=== PATIENT | male | born 1940 | race Caucasian/White ===

== ENCOUNTER 2018-02-03 16:02 | Emergency (ER) | payer MEDICARE ==
[2018-02-03 16:47] LABS: #Basophils 0.1 thou/uL (0.0-0.2); #Lymphocytes 0.7 thou/uL (1.20-3.40); #Monocytes 0.4 thou/uL (0.11-0.59); #Neutrophils 8.7 thou/uL (1.40-6.50); %Basophils 0.5 % (0.0-1.0); %Eosinophils 0.1 % (0.0-10.0); %Lymphocytes 7.4 % (21.0-51.0); %Monocytes 4.3 % (0.0-10.0); %Neutrophils 87.7 % (42.0-75.0); Mean Corpuscular HGB CONC 35.2 g/dL (32.0-36.0); Mean Corpuscular Hemoglobin 33.7 pg (27.0-31.0); Mean Corpuscular Volume 95.8 fl (80.0-94.0); Mean Platelet Volume 8.2 fL (7.4-10.4); Platelet Count 195 thou/uL (130-400); RBC Distribution Width 11.7 % (11.5-14.5); Red Blood Cell (RBC) Count 5.32 mill/uL (4.70-6.10)
--- NOTE | 2018-02-03 16:49 | RAD ---
CHEST ONE VIEW: 02/03/18 HISTORY: Fever and weakness. COMPARISON: 09/26/09. FINDINGS: The cardiac silhouette is magnified by projection. Pulmonary vasculature is slightly engorged. Medias tinum midline. No lobar consolidation or evidence of pneumothorax. IMPRESSION: Mild pulmonary vascular congestion. POS: [facility]
[2018-02-03 16:58] LABS: ALT (SGPT) 28 U/L (8-55); AST (SGOT) 16 U/L (5-34); Albumin 3.8 g/dL (3.4-4.8); Alkaline Phosphatase 85 U/L (40-150); Anion Gap 12 mmol/L (10-20); BUN (Urea Nitrogen) 13 mg/dL (8.4-25.7); Bilirubin, Total 1.4 mg/dL (0.2-1.2); Calc. Creatinine Clearance 0 mL/min (70-130); Calcium 9.6 mg/dL (7.8-10.44); Carbon Dioxide 21 mmol/L (23-31); Chloride 105 mmol/L (98-107); Estimated GFR-MDRD Greater than 90; Glucose 167 mg/dL (83-110); Potassium 4.3 mmol/L (3.5-5.1); Protein, Total 6.8 g/dL (5.8-8.1); Sodium 134 mmol/L (136-145)
[2018-02-03 17:02] LABS: CKMB 0.6 ng/mL (0-6.6); Troponin I Less than 0.010 ng/mL (< 0.028)
== END 2018-02-03 17:48 | disposition home or self-care (01) ==
LOC: SCSER 16:02
DX: T67.5XXA Heat exhaustion, unspecified, initial encounter (principal); E86.0 Dehydration
CPT/HCPCS: 71045; 80053; 82553; 83880; 84484; 85025; 87804; 93005

== ENCOUNTER 2021-01-18 11:35 | Emergency (ER) | payer MEDICARE ==
[2021-01-18] MEDS ORDERED: hydrOXYzine 25 MG TAB ONE (14:13)
[2021-01-18] MEDS ORDERED: Dexamethasone 4 mg/ml Vial ONE (14:13)
== END 2021-01-18 14:54 | disposition home or self-care (01) ==
LOC: ERS 11:36
DX: L23.7 Allergic contact dermatitis due to plants, except food (principal)
CPT/HCPCS: 96372; 99282; J1100

== ENCOUNTER 2021-05-26 10:26 | Emergency (ER) | payer MEDICARE ==
[~2021-05-26 10:26] MED LIST: Iopamidol-370 76% 500 ML 1 ML ONE
[2021-05-26 12:13] LABS: #Eosinphils 0.3 thou/uL (0.0-0.7); #Lymphocytes 2.6 thou/uL (1.20-3.40); #Monocytes 0.5 thou/uL (0.11-0.59); #Neutrophils 4.6 thou/uL (1.40-6.50); %Basophils 0.1 % (0.0-1.0); %Eosinophils 3.9 % (0.0-10.0); %Lymphocytes 32.8 % (21.0-51.0); %Monocytes 6.5 % (0.0-10.0); %Neutrophils 56.6 % (42.0-75.0); Hemoglobin 17.8 g/dL (14.0-18.0); Mean Corpuscular HGB CONC 33.3 g/dL (32.0-36.0); Mean Corpuscular Hemoglobin 34.2 pg (27.0-31.0); Mean Platelet Volume 7.4 fL (7.4-10.4); Platelet Count 274 thou/uL (130-400); RBC Distribution Width 11.6 % (11.5-14.5)
[2021-05-26 12:23] LABS: ALT (SGPT) 65 U/L (8-55); AST (SGOT) 30 U/L (5-34); Alkaline Phosphatase 93 U/L (40-110); Anion Gap 14 mmol/L (10-20); BUN (Urea Nitrogen) 15 mg/dL (8.4-25.7); Bilirubin, Total 0.6 mg/dL (0.2-1.2); Calc. Creatinine Clearance 0 mL/min (70-130); Calcium 9.9 mg/dL (7.8-10.44); Carbon Dioxide 24 mmol/L (23-31); Chloride 107 mmol/L (98-107); Globulin 3.2 g/dL (2.4-3.5); Glucose 103 mg/dL (83-110); Lipase 16 U/L (8-78); Potassium 4.5 mmol/L (3.5-5.1); Protein, Total 7.2 g/dL (5.8-8.1); Sodium 140 mmol/L (136-145)
== END 2021-05-26 13:38 | disposition home or self-care (01) ==
LOC: ERS 10:26
DX: N28.89 Other specified disorders of kidney and ureter (principal); M54.2 Cervicalgia; R19.5 Other fecal abnormalities
CPT/HCPCS: 36415; 74177; 80053; 83690; 84484; 85025; 93005; Q9967

== ENCOUNTER 2022-02-08 14:04 | Emergency (ER) | payer MEDICARE ==
[~2022-02-08 14:04] MED LIST changes: +ISOVUE-370 76%-LOCM 1 ML ONE; -Iopamidol-370 76% 500 ML 1 ML ONE
[2022-02-08 14:37] LABS: #Eosinphils 0.1 thou/uL (0.0-0.7); #Lymphocytes 2.6 thou/uL (1.20-3.40); #Neutrophils 12.7 thou/uL (1.40-6.50); %Basophils 0.2 % (0.0-1.0); %Eosinophils 0.4 % (0.0-10.0); %Lymphocytes 15.8 % (21.0-51.0); %Monocytes 6.4 % (0.0-10.0); %Neutrophils 77.2 % (42.0-75.0); Hemoglobin 18.3 g/dL (14.0-18.0); Mean Corpuscular Hemoglobin 34.7 pg (27.0-31.0); Platelet Count 312 thou/uL (130-400); RBC Distribution Width 12.2 % (11.5-14.5); Red Blood Cell (RBC) Count 5.27 mill/uL (4.70-6.10); White Blood Cell (WBC) Count 16.4 thou/uL (4.8-10.8)
[2022-02-08 14:48] LABS: Prothrombin Time 13.3 sec (12.0-14.7)
[2022-02-08 14:49] LABS: PTT 30.6 sec (22.9-36.1)
[2022-02-08 14:53] LABS: ALT (SGPT) 33 U/L (8-55); AST (SGOT) 17 U/L (5-34); Albumin 3.9 g/dL (3.4-4.8); Alkaline Phosphatase 95 U/L (40-110); Anion Gap 14 mmol/L (10-20); BUN (Urea Nitrogen) 16 mg/dL (8.4-25.7); Bilirubin, Total 1.4 mg/dL (0.2-1.2); Calc. Creatinine Clearance 0 mL/min (70-130); Calcium 9.4 mg/dL (7.8-10.44); Carbon Dioxide 24 mmol/L (23-31); Chloride 104 mmol/L (98-107); Globulin 2.8 g/dL (2.4-3.5); Glucose 133 mg/dL (83-110); Lipase 11 U/L (8-78); Potassium 4.4 mmol/L (3.5-5.1); Protein, Total 6.7 g/dL (5.8-8.1); Sodium 138 mmol/L (136-145)
[2022-02-08] MEDS ORDERED: Ondansetron PF 4 MG/2 ML Vial ONE (15:26)
[2022-02-08] MEDS ORDERED: Pantoprazole 40 MG VIAL ONE (15:26)
[2022-02-08 18:03] LABS: Bacteria/HPF None Seen HPF (None Seen); Bilirubin Negative (Negative); Blood, Urine Trace (Negative); Clarity Clear (Clear); Glucose, Urine (Dipstick) Normal (Negative); Ketone, Urine 10 mg/dL (Negative); Leukocyte Negative Leu/uL (Negative); Nitrite Negative (Negative); Protein, Urine (Dipstick) Negative (Neg-Trace); Squamous Epithelial None Seen HPF (0-3); Urobilinogen Normal mg/dL (Less than 2); WBC/HPF 0-3 HPF (0-3)
[2022-02-08 18:05] LABS: Specific Gravity, Urine 1.046 (1.002-1.036)
== END 2022-02-08 17:42 | disposition home or self-care (01) ==
LOC: ERS 14:04
DX: N28.89 Other specified disorders of kidney and ureter (principal); R11.2 Nausea with vomiting, unspecified
CPT/HCPCS: 36415; 71045; 74177; 80053; 81003; 81015; 82274; 83605; 83690; 84484; 85025; 85610; 85730; 86850; 86900; 86901; 87040; 93005; 96361; 96374; 96375; C9113; J2405; Q9966

== ENCOUNTER 2023-04-02 14:32 | Inpatient (IN) | payer MEDICARE ==
[~2023-04-02 14:32] MED LIST changes: -ISOVUE-370 76%-LOCM 1 ML ONE; +Iopamidol-370 76% 500 ML MDV (1 ML CHARGE) ONE
[2023-04-02 15:06] LABS: #Basophils 0.1 thou/uL (0.0-0.2); #Eosinphils 0.2 thou/uL (0.0-0.7); #Monocytes 0.6 thou/uL (0.11-0.59); #Neutrophils 12.2 thou/uL (1.40-6.50); %Basophils 0.3 % (0.0-1.0); %Eosinophils 1.5 % (0.0-10.0); %Lymphocytes 16.1 % (21.0-51.0); %Monocytes 4.1 % (0.0-10.0); %Neutrophils 77.4 % (42.0-75.0); Hemoglobin 18.8 g/dL (14.0-18.0); Mean Corpuscular HGB CONC 34.2 g/dL (32.0-36.0); Mean Corpuscular Hemoglobin 33.9 pg (27.0-31.0); Mean Corpuscular Volume 99.1 fl (78.0-98.0); Mean Platelet Volume 9.6 fL (7.4-10.4); Platelet Count 291 10x3/uL (130-400); RBC Distribution Width 13.1 % (11.5-14.5); Red Blood Cell (RBC) Count 5.55 mill/uL (4.70-6.10); White Blood Cell (WBC) Count 15.8 10x3/uL (4.8-10.8)
[2023-04-02 15:32] LABS: ALT (SGPT) 212 U/L (8-55); AST (SGOT) 132 U/L (5-34); Albumin 3.8 g/dL (3.4-4.8); Alkaline Phosphatase 145 U/L (40-110); Anion Gap 14 mmol/L (10-20); BUN (Urea Nitrogen) 19 mg/dL (8.4-25.7); Bilirubin, Total 3.5 mg/dL (0.2-1.2); Calc. Creatinine Clearance 0 mL/min (70-130); Calcium 10.6 mg/dL (7.8-10.44); Carbon Dioxide 23 mmol/L (23-31); Chloride 104 mmol/L (98-107); Estimated GFR 77; Globulin 3.5 g/dL (2.4-3.5); Glucose 141 mg/dL (83-110); Potassium 4.1 mmol/L (3.5-5.1); Protein, Total 7.3 g/dL (5.8-8.1); Sodium 137 mmol/L (136-145); Troponin I Less than 0.010 ng/mL (< 0.028)
[2023-04-02] MEDS ORDERED: Dexamethasone 4 mg/ml Vial ONE (16:43)
[2023-04-02] MEDS ORDERED: Morphine 4 MG/ML VIAL ONE (16:43)
[2023-04-02 16:47] LABS: Bacteria/HPF None Seen HPF (None Seen); Bilirubin Negative (Negative); Blood, Urine Negative (Negative); CAUTI Indications for Culture Pelvic or flank pain; Clarity Clear (Clear); Glucose, Urine (Dipstick) Normal (Negative); Ketone, Urine Negative (Negative); Leukocyte Negative Leu/uL (Negative); Nitrite Negative (Negative); Protein, Urine (Dipstick) Negative (Neg-Trace); RBC/HPF 0-3 HPF (0-3); Specific Gravity, Urine 1.025 (1.002-1.036); Squamous Epithelial None Seen HPF (0-3); Urobilinogen 3 mg/dL (Less than 2); WBC/HPF 0-3 HPF (0-3); pH, Urine 6.5 (5.0-9.0)
[2023-04-02] MEDS ORDERED: Ondansetron ODT 4 MG TAB ONE (16:50)
[2023-04-02 16:54] LABS: Urine Culture Reflex No No
[2023-04-02] MEDS ORDERED: dilTIAZem 125 MG/25 ML SDV ONE (17:28)
[2023-04-02] MEDS ORDERED: Senokot S 8.6-50 MG TAB PO PRN (19:10)
[2023-04-02] MEDS ORDERED: Ondansetron ODT 4 MG TAB PO PRN (19:10)
[2023-04-02] MEDS ORDERED: Bisacodyl 10 MG SUPP PR PRN (19:10)
[2023-04-02] MEDS ORDERED: Acetaminophen 325 MG TAB PO PRN (19:10)
[2023-04-02] MEDS ORDERED: Bisacodyl 5 MG TAB PO PRN (19:10)
[2023-04-02] MEDS ORDERED: dilTIAZem 125 MG in Sodium Chloride 0.9% 100 ML IVPB SCH (19:15)
[2023-04-02] MEDS ORDERED: Communication Order-Pharmacy FS ONE (19:17)
[2023-04-02 19:51] LABS: Troponin I Less than 0.010 ng/mL (< 0.028)
[2023-04-02] MEDS ORDERED: Magnesium 2 GM/50 ML(in water) 2 GM in Premix Bag 1 BAG IVPB SCH (20:00)
[2023-04-02 20:25] LABS: Thyroid Stimulating Hormone 1.8649 uIU/mL (0.35-4.94)
[2023-04-02] MEDS ORDERED: Piperacillin/Tazobactam 3.375 GM in Sodium Chloride 0.9% 100 ML IVPB SCH (21:00)
[2023-04-02] MEDS: Sodium Chloride 0.9% 1,000 ML IV SCH (22:02)
[2023-04-02] MEDS: Metoprolol Tartrate 25 MG TAB PO SCH (22:02)
[2023-04-02 22:25] VITALS: BMI 28.5
[2023-04-02 22:29] LABS: Troponin I Less than 0.010 ng/mL (< 0.028)
[2023-04-03 02:54] LABS: HBCM Index 0.08 S/CO (0-0.79); HBSAg Index 0.23 S/CO (0-0.99); Hep A IgM AB Non-Reactive S/CO (NonReactive); Hep A IgM S/CO 0.32 S/CO (0-0.79); Hep B Surf Ag Non-Reactive S/CO (NonReactive); Hep C IgG Ab Non-Reactive S/CO (NonReactive); Hep C Index 0.08 S/CO (0-0.79); Hepatitis B Core IgM Abs Non-Reactive S/CO (NonReactive)
[2023-04-03] MEDS: Piperacillin/Tazobactam 3.375 GM in Sodium Chloride 0.9% 100 ML IVPB SCH ×3 (03:27→18:13)
[2023-04-03 04:03] LABS: #Monocytes 0.3 thou/uL (0.11-0.59); #Neutrophils 10.1 thou/uL (1.40-6.50); %Basophils 0.2 % (0.0-1.0); %Lymphocytes 10.1 % (21.0-51.0); %Monocytes 2.4 % (0.0-10.0); %Neutrophils 86.6 % (42.0-75.0); Hematocrit 49.5 % (42.0-52.0); Hemoglobin 16.8 g/dL (14.0-18.0); Mean Corpuscular HGB CONC 33.9 g/dL (32.0-36.0); Mean Corpuscular Hemoglobin 34.5 pg (27.0-31.0); Mean Corpuscular Volume 101.6 fl (78.0-98.0); Mean Platelet Volume 9.4 fL (7.4-10.4); Platelet Count 264 10x3/uL (130-400); RBC Distribution Width 13.3 % (11.5-14.5); Red Blood Cell (RBC) Count 4.87 mill/uL (4.70-6.10); White Blood Cell (WBC) Count 11.7 10x3/uL (4.8-10.8)
[2023-04-03 04:28] LABS: ALT (SGPT) 195 U/L (8-55); AST (SGOT) 89 U/L (5-34); Albumin 3.4 g/dL (3.4-4.8); Alkaline Phosphatase 126 U/L (40-110); Anion Gap 11 mmol/L (10-20); BUN (Urea Nitrogen) 17 mg/dL (8.4-25.7); Bilirubin, Direct 2.7 mg/dL (0.1-0.3); Bilirubin, Total 3.6 mg/dL (0.2-1.2); Calc. Creatinine Clearance 93 mL/min (70-130); Calcium 9.6 mg/dL (7.8-10.44); Carbon Dioxide 20 mmol/L (23-31); Chloride 106 mmol/L (98-107); Estimated GFR 88; Glucose 181 mg/dL (83-110); Potassium 4.2 mmol/L (3.5-5.1); Protein, Total 6.5 g/dL (5.8-8.1); Sodium 133 mmol/L (136-145)
[2023-04-03] MEDS: Sodium Chloride 0.9% 1,000 ML IV SCH (05:10)
[2023-04-03] MEDS: Metoprolol Tartrate 25 MG TAB PO SCH ×2 (09:56→21:03)
[2023-04-03 12:09] VITALS: BP 135/90
[2023-04-03] MEDS ORDERED: Melatonin 3 MG TAB PO PRN (20:12)
[2023-04-04 02:41] LABS: #Eosinphils 0.1 thou/uL (0.0-0.7); #Monocytes 0.8 thou/uL (0.11-0.59); #Neutrophils 10.7 thou/uL (1.40-6.50); %Basophils 0.1 % (0.0-1.0); %Eosinophils 0.4 % (0.0-10.0); %Lymphocytes 14.9 % (21.0-51.0); %Monocytes 6.1 % (0.0-10.0); %Neutrophils 77.8 % (42.0-75.0); Hematocrit 47.2 % (42.0-52.0); Hemoglobin 16.2 g/dL (14.0-18.0); Mean Corpuscular HGB CONC 34.3 g/dL (32.0-36.0); Mean Corpuscular Hemoglobin 34.8 pg (27.0-31.0); Mean Corpuscular Volume 101.5 fl (78.0-98.0); Mean Platelet Volume 9.8 fL (7.4-10.4); Platelet Count 247 10x3/uL (130-400); RBC Distribution Width 13.7 % (11.5-14.5); Red Blood Cell (RBC) Count 4.65 mill/uL (4.70-6.10); White Blood Cell (WBC) Count 13.8 10x3/uL (4.8-10.8)
[2023-04-04] MEDS: Piperacillin/Tazobactam 3.375 GM in Sodium Chloride 0.9% 100 ML IVPB SCH ×2 (02:41→11:33)
[2023-04-04 03:43] LABS: AST (SGOT) 38 U/L (5-34); Albumin 3.3 g/dL (3.4-4.8); Alkaline Phosphatase 108 U/L (40-110); Anion Gap 12 mmol/L (10-20); BUN (Urea Nitrogen) 18 mg/dL (8.4-25.7); Bilirubin, Direct 0.9 mg/dL (0.1-0.3); Bilirubin, Total 1.5 mg/dL (0.2-1.2); Calc. Creatinine Clearance 97 mL/min (70-130); Calcium 9.7 mg/dL (7.8-10.44); Carbon Dioxide 20 mmol/L (23-31); Chloride 109 mmol/L (98-107); Estimated GFR 89; Glucose 113 mg/dL (83-110); Protein, Total 6.5 g/dL (5.8-8.1); Sodium 137 mmol/L (136-145)
[2023-04-04 03:44] VITALS: TEMP 97
[2023-04-04 03:44] LABS: ALT (SGPT) 140 U/L (8-55)
[2023-04-04] MEDS ORDERED: fentaNYL PF 100 MCG/2 ML SYRINGE ONE (07:32)
[2023-04-04] MEDS ORDERED: Indomethacin 50 MG SUPP ONE (07:40)
[2023-04-04] MEDS ORDERED: Iopamidol 30 ML ONE (07:41)
[2023-04-04] MEDS ORDERED: Ondansetron HCl/PF 4 MG/2 ML Vial IVP PRN (07:42)
[2023-04-04] MEDS ORDERED: Promethazine HCl 25 MG/ML VIAL IM PRN (07:42)
[2023-04-04] MEDS ORDERED: SUGAMMADEX SODIUM 200 MG/2 ML VIAL ONE (08:00)
[2023-04-04] MEDS ORDERED: PHENYLEPHRINE-NS 100 MCG/ML 10 ML SYRINGE ONE (08:10)
[2023-04-04] MEDS ORDERED: PROPOFOL 200 MG/20 ML VIAL ONE (08:10)
[2023-04-04] MEDS ORDERED: Dexamethasone 20 MG/5 ML VIAL ONE (08:10)
[2023-04-04] MEDS ORDERED: Lidocaine 1% PF 5 ML VIAL ONE (08:10)
[2023-04-04] MEDS ORDERED: Ondansetron PF 4 MG/2 ML Vial ONE (08:10)
[2023-04-04] MEDS ORDERED: Rocuronium Bromide 10 MG/ML (10ML VIAL) ONE (08:10)
[2023-04-04] MEDS: Metoprolol Tartrate 25 MG TAB PO SCH (11:32)
== END 2023-04-04 16:09 | disposition short-term general hospital (02) | DRG 445 ==
LOC: ERS 14:32 → IMCU/EMU 18:01
PROVIDERS: ADMIT Hospitalist; ATTEND Internal Medicine
PROC: 0FJB8ZZ Inspection of Hepatobiliary Duct, Via Natural or Artificial Opening Endoscopic (ICD-10-PCS; principal; 2023-04-04)
DX: K80.50 Calculus of bile duct without cholangitis or cholecystitis without obstruction (principal); C64.1 Malignant neoplasm of right kidney, except renal pelvis; I48.92 Unspecified atrial flutter; K57.10 Diverticulosis of small intestine without perforation or abscess without bleeding; R29.6 Repeated falls; K44.9 Diaphragmatic hernia without obstruction or gangrene; K21.9 Gastro-esophageal reflux disease without esophagitis; D75.1 Secondary polycythemia; E83.52 Hypercalcemia; W18.30XA Fall on same level, unspecified, initial encounter; H90.41 Sensorineural hearing loss, unilateral, right ear, with unrestricted hearing on the contralateral side; Z87.81 Personal history of (healed) traumatic fracture; Z90.49 Acquired absence of other specified parts of digestive tract; Z79.899 Other long term (current) drug therapy; I48.91 Unspecified atrial fibrillation
CPT/HCPCS: 36415; 71275; 74176; 74181; 74330; 80048; 80053; 80074; 80076; 81001; 83690; 83880; 84439; 84443; 84484; 85025; 87040; 87081; 93005; 96361; 96365; 96366; 96372; 96375; J1100; J1650; J2270; J2405; J2543; J2704; J3475; J3490; J7050; Q0162; Q9967

== ENCOUNTER 2023-07-24 13:27 | Inpatient (IN) | payer MEDICARE ==
[2023-07-24 14:14] LABS: #Eosinphils 0.3 thou/uL (0.0-0.7); #Monocytes 0.6 thou/uL (0.11-0.59); #Neutrophils 4.3 thou/uL (1.40-6.50); %Basophils 0.5 % (0.0-1.0); %Eosinophils 4.4 % (0.0-10.0); %Lymphocytes 31.8 % (21.0-51.0); %Monocytes 7.1 % (0.0-10.0); %Neutrophils 55.9 % (42.0-75.0); Hematocrit 56.4 % (42.0-52.0); Hemoglobin 18.8 g/dL (14.0-18.0); Mean Corpuscular HGB CONC 33.3 g/dL (32.0-36.0); Mean Corpuscular Hemoglobin 33.8 pg (27.0-31.0); Mean Corpuscular Volume 101.4 fl (78.0-98.0); Mean Platelet Volume 9.6 fL (7.4-10.4); Platelet Count 281 10x3/uL (130-400); RBC Distribution Width 12.9 % (11.5-14.5); Red Blood Cell (RBC) Count 5.56 mill/uL (4.70-6.10); White Blood Cell (WBC) Count 7.7 10x3/uL (4.8-10.8)
[2023-07-24 14:28] LABS: Prothrombin Time 13.5 sec (12.0-14.7)
[2023-07-24 14:29] LABS: PTT 31.2 sec (22.9-36.1)
[2023-07-24] MEDS ORDERED: dilTIAZem 25 MG/5 ML VIAL ONE (14:47)
[2023-07-24] MEDS ORDERED: dilTIAZem 125 MG/25 ML SDV ONE (14:48)
[2023-07-24 14:50] LABS: ALT (SGPT) 27 U/L (8-55); AST (SGOT) 20 U/L (5-34); Albumin 3.9 g/dL (3.4-4.8); Alkaline Phosphatase 93 U/L (40-110); Anion Gap 12 mmol/L (10-20); BUN (Urea Nitrogen) 15 mg/dL (8.4-25.7); Bilirubin, Total 1.1 mg/dL (0.2-1.2); Calc. Creatinine Clearance 0 mL/min (70-130); Calcium 10.4 mg/dL (7.8-10.44); Carbon Dioxide 29 mmol/L (23-31); Chloride 103 mmol/L (98-107); Estimated GFR 87; Globulin 3.4 g/dL (2.4-3.5); Glucose 108 mg/dL (83-110); Potassium 4.8 mmol/L (3.5-5.1); Protein, Total 7.3 g/dL (5.8-8.1); Sodium 139 mmol/L (136-145)
[2023-07-24 14:54] LABS: Troponin I Less than 0.010 ng/mL (< 0.028)
[2023-07-24 16:52] LABS: Magnesium 2.1 mg/dL (1.6-2.6)
[2023-07-24 17:37] VITALS: BMI 27.8
[2023-07-24] MEDS ORDERED: Nitroglycerin 0.4 MG TAB (25 Tab Bottle) SL PRN (18:19)
[2023-07-24] MEDS ORDERED: Communication Order-Pharmacy FS PRN (18:21)
[2023-07-24] MEDS ORDERED: Acetaminophen 325 MG TAB PO PRN (18:22)
[2023-07-24] MEDS ORDERED: Calcium Carbonate 500 MG ChewTAB PO PRN (18:22)
[2023-07-24] MEDS ORDERED: Senokot S 8.6-50 MG TAB PO PRN (18:22)
[2023-07-24] MEDS ORDERED: Sodium Chloride 0.9% 1,000 ML IV SCH (19:00)
[2023-07-24] MEDS: Folic Acid 1 MG TAB PO SCH (20:19)
[2023-07-24] MEDS: Multivit, Therapeutic 1 TAB PO SCH (20:19)
[2023-07-24] MEDS: Famotidine 20 MG TAB PO SCH (20:19)
[2023-07-24] MEDS: Cyanocobalamin (Vitamin B-12) 1,000 MCG TAB PO SCH (20:19)
[2023-07-25 04:58] LABS: #Eosinphils 0.5 thou/uL (0.0-0.7); #Monocytes 0.8 thou/uL (0.11-0.59); #Neutrophils 3.7 thou/uL (1.40-6.50); %Basophils 0.5 % (0.0-1.0); %Eosinophils 6.7 % (0.0-10.0); %Lymphocytes 32.6 % (21.0-51.0); %Monocytes 10.3 % (0.0-10.0); %Neutrophils 49.6 % (42.0-75.0); Hematocrit 51.3 % (42.0-52.0); Hemoglobin 17.4 g/dL (14.0-18.0); Mean Corpuscular HGB CONC 33.9 g/dL (32.0-36.0); Mean Corpuscular Hemoglobin 33.5 pg (27.0-31.0); Mean Corpuscular Volume 98.7 fl (78.0-98.0); Mean Platelet Volume 9.8 fL (7.4-10.4); Platelet Count 258 10x3/uL (130-400); RBC Distribution Width 12.8 % (11.5-14.5); White Blood Cell (WBC) Count 7.4 10x3/uL (4.8-10.8)
[2023-07-25 05:38] LABS: ALT (SGPT) 21 U/L (8-55); AST (SGOT) 15 U/L (5-34); Albumin 3.5 g/dL (3.4-4.8); Alkaline Phosphatase 80 U/L (40-110); Anion Gap 12 mmol/L (10-20); BUN (Urea Nitrogen) 12 mg/dL (8.4-25.7); Calc. Creatinine Clearance 103 mL/min (70-130); Calcium 9.5 mg/dL (7.8-10.44); Carbon Dioxide 22 mmol/L (23-31); Chloride 107 mmol/L (98-107); Estimated GFR 91; Glucose 103 mg/dL (83-110); Potassium 3.9 mmol/L (3.5-5.1); Protein, Total 6.5 g/dL (5.8-8.1); Sodium 137 mmol/L (136-145)
[2023-07-25] MEDS: Famotidine 20 MG TAB PO SCH ×2 (08:38→19:58)
[2023-07-25] MEDS: Amiodarone 200 MG TAB PO SCH (19:58)
[2023-07-25] MEDS: Cyanocobalamin (Vitamin B-12) 1,000 MCG TAB PO SCH (19:58)
[2023-07-25] MEDS: Multivit, Therapeutic 1 TAB PO SCH (19:58)
[2023-07-25] MEDS: Folic Acid 1 MG TAB PO SCH (19:58)
[2023-07-26 05:54] LABS: Anion Gap 12 mmol/L (10-20); BUN (Urea Nitrogen) 14 mg/dL (8.4-25.7); Calc. Creatinine Clearance 91 mL/min (70-130); Calcium 9.8 mg/dL (7.8-10.44); Carbon Dioxide 23 mmol/L (23-31); Chloride 107 mmol/L (98-107); Estimated GFR 88; Glucose 120 mg/dL (83-110); Sodium 138 mmol/L (136-145)
[2023-07-26] MEDS: Famotidine 20 MG TAB PO SCH ×2 (08:10→20:07)
[2023-07-26] MEDS: Amiodarone 200 MG TAB PO SCH ×2 (08:10→20:07)
[2023-07-26] MEDS: Folic Acid 1 MG TAB PO SCH (20:07)
[2023-07-26] MEDS: Multivit, Therapeutic 1 TAB PO SCH (20:07)
[2023-07-26] MEDS: Cyanocobalamin (Vitamin B-12) 1,000 MCG TAB PO SCH (20:07)
[2023-07-27 04:53] LABS: Hematocrit 53.4 % (42.0-52.0); Hemoglobin 18.1 g/dL (14.0-18.0); Platelet Count 244 10x3/uL (130-400)
[2023-07-27] MEDS: Famotidine 20 MG TAB PO SCH ×2 (08:57→20:30)
[2023-07-27] MEDS: Amiodarone 200 MG TAB PO SCH ×2 (08:57→20:30)
[2023-07-27] MEDS: dilTIAZem 125 MG in Sodium Chloride 0.9% 100 ML IVPB SCH (09:01)
[2023-07-27] MEDS: Multivit, Therapeutic 1 TAB PO SCH (20:30)
[2023-07-27] MEDS: Cyanocobalamin (Vitamin B-12) 1,000 MCG TAB PO SCH (20:30)
[2023-07-27] MEDS: Folic Acid 1 MG TAB PO SCH (20:30)
[2023-07-28] MEDS: Famotidine 20 MG TAB PO SCH ×2 (09:45→20:49)
[2023-07-28] MEDS: Amiodarone 200 MG TAB PO SCH ×2 (09:46→20:49)
[2023-07-28] MEDS: dilTIAZem 125 MG in Sodium Chloride 0.9% 100 ML IVPB SCH (12:11)
[2023-07-28] MEDS: Cyanocobalamin (Vitamin B-12) 1,000 MCG TAB PO SCH (20:49)
[2023-07-28] MEDS: Multivit, Therapeutic 1 TAB PO SCH (20:49)
[2023-07-28] MEDS: Folic Acid 1 MG TAB PO SCH (20:49)
[2023-07-28] MEDS: Apixaban 5 MG TAB PO SCH (20:49)
[2023-07-28] MEDS ORDERED: Metoprolol Tartrate 25 MG TAB PO SCH (21:00)
[2023-07-29] MEDS ORDERED: Sodium Chloride 0.9% 500 ML IV SCH (05:00)
[2023-07-29 05:02] LABS: Anion Gap 13 mmol/L (10-20); BUN (Urea Nitrogen) 14 mg/dL (8.4-25.7); Calc. Creatinine Clearance 86 mL/min (70-130); Calcium 10.1 mg/dL (7.8-10.44); Carbon Dioxide 22 mmol/L (23-31); Chloride 105 mmol/L (98-107); Estimated GFR 87; Glucose 116 mg/dL (83-110); Sodium 136 mmol/L (136-145)
[2023-07-29] MEDS: Apixaban 5 MG TAB PO SCH ×2 (09:34→20:25)
[2023-07-29] MEDS: Famotidine 20 MG TAB PO SCH ×2 (09:34→20:25)
[2023-07-29] MEDS: Amiodarone 200 MG TAB PO SCH (09:34)
[2023-07-29] MEDS: Ipratropium Bromide 2.5 ml Neb NEB SCH ×2 (18:45→23:13)
[2023-07-29] MEDS: Multivit, Therapeutic 1 TAB PO SCH (20:25)
[2023-07-29] MEDS: Cyanocobalamin (Vitamin B-12) 1,000 MCG TAB PO SCH (20:25)
[2023-07-29] MEDS: Folic Acid 1 MG TAB PO SCH (20:25)
[2023-07-30 05:07] LABS: Hematocrit 51.9 % (42.0-52.0); Hemoglobin 17.7 g/dL (14.0-18.0); Platelet Count 257 10x3/uL (130-400)
[2023-07-30] MEDS: Ipratropium Bromide 2.5 ml Neb NEB SCH (07:23)
[2023-07-30] MEDS: Apixaban 5 MG TAB PO SCH (08:40)
[2023-07-30] MEDS: Famotidine 20 MG TAB PO SCH (08:40)
[2023-07-30] MEDS ORDERED: Amiodarone 200 MG TAB PO SCH (09:00)
[2023-07-30 11:34] VITALS: BP 144/91; TEMP 98.1
== END 2023-07-30 13:08 | disposition home or self-care (01) | DRG 310 ==
LOC: ERS 13:27 → 2NO 15:32
PROVIDERS: ADMIT Internal Medicine; ATTEND Internal Medicine
DX: I48.0 Paroxysmal atrial fibrillation (principal); N18.2 Chronic kidney disease, stage 2 (mild); D63.1 Anemia in chronic kidney disease; H90.5 Unspecified sensorineural hearing loss; K80.50 Calculus of bile duct without cholangitis or cholecystitis without obstruction; N28.89 Other specified disorders of kidney and ureter; Z79.899 Other long term (current) drug therapy; Z98.890 Other specified postprocedural states; Z90.49 Acquired absence of other specified parts of digestive tract
CPT/HCPCS: 36415; 71045; 80048; 80053; 83735; 83880; 84484; 85014; 85018; 85025; 85049; 85610; 85730; 93005; 93010; 93306; 94640; 94760; 96365; 96372; 96376; J1650; J3490; J7050

== ENCOUNTER → 2023-07-24 | Day surgery (SDC) | payer MEDICARE ==
[~2023-07-24] MED LIST changes: +Glucagon 1 MG/ML KIT ONE; +Indomethacin 50 MG SUPP ONE; +Iopamidol 0 ML ONE; -Iopamidol-370 76% 500 ML MDV (1 ML CHARGE) ONE; +Lidocaine 1% PF 5 ML VIAL ONE; +PROPOFOL 0 ML ONE; +Rocuronium Bromide 10 MG/ML (10ML VIAL) ONE; +fentaNYL PF 100 MCG/2 ML SYRINGE ONE
[2023-07-24 17:06] VITALS: BMI 27.8
[2023-07-24 17:07] VITALS: BP 161/80; TEMP 98.1
== END ==
LOC: SDC 10:43
PROVIDERS: ATTEND Internal Medicine
DX: I48.91 Unspecified atrial fibrillation (principal); K80.50 Calculus of bile duct without cholangitis or cholecystitis without obstruction; I25.2 Old myocardial infarction; Z90.49 Acquired absence of other specified parts of digestive tract; Z90.89 Acquired absence of other organs; Z53.09 Procedure and treatment not carried out because of other contraindication
CPT/HCPCS: J1611; J2704; Q9967

== ENCOUNTER 2024-04-19 15:18 | Inpatient (IN) | payer MEDICARE ==
[2024-04-19 16:11] LABS: #Basophils 0.04 10x3/uL (0.0-0.2); %Basophils 0.4 % (0.0-1.0); %Eosinophils 5.2 % (0.0-10.0); %Lymphocytes 38.8 % (21.0-51.0); %Monocytes 6.3 % (0.0-10.0); Hemoglobin 17.8 g/dL (14.0-18.0); Mean Corpuscular HGB CONC 34.2 g/dL (32.0-36.0); Mean Corpuscular Hemoglobin 34.8 pg (27.0-31.0); Mean Corpuscular Volume 101.6 fL (78.0-98.0); Mean Platelet Volume 9.9 fL (7.4-10.4); Platelet Count 273 10x3/uL (130-400); Red Blood Cell (RBC) Count 5.12 mill/uL (4.70-6.10)
[2024-04-19 16:25] LABS: INR-International Normal Ratio 1.1; PTT 34.3 sec (22.9-36.1); Prothrombin Time 13.8 sec (12.0-14.7)
[2024-04-19 16:27] LABS: ALT (SGPT) 28 U/L (8-55); AST (SGOT) 19 U/L (5-34); Albumin 3.5 g/dL (3.4-4.8); Alkaline Phosphatase 101 U/L (40-110); Anion Gap 11 mmol/L (10-20); BUN (Urea Nitrogen) 21 mg/dL (8.4-25.7); Bilirubin, Total 0.5 mg/dL (0.2-1.2); Calc. Creatinine Clearance 0 mL/min (70-130); Calcium 9.4 mg/dL (7.8-10.44); Carbon Dioxide 27 mmol/L (23-31); Chloride 105 mmol/L (98-107); Estimated GFR 86; Globulin 3.5 g/dL (2.4-3.5); Glucose 132 mg/dL (83-110); Sodium 139 mmol/L (136-145)
[2024-04-19 16:28] LABS: Troponin I Less than 0.010 ng/mL (< 0.028)
[2024-04-19] MEDS ORDERED: Acetaminophen 325 MG TAB PO PRN (18:19)
[2024-04-19] MEDS ORDERED: Ondansetron PF 4 MG/2 ML Vial IVP PRN (18:19)
[2024-04-19] MEDS ORDERED: Ondansetron ODT 4 MG TAB PO PRN (18:19)
[2024-04-19] MEDS: Pantoprazole 40 MG VIAL IVP SCH (20:09)
[2024-04-19] MEDS: Tamsulosin HCl 0.4 MG CAP PO SCH (20:09)
[2024-04-19 20:32] LABS: Hematocrit 52.7 % (42.0-52.0); Hemoglobin 17.7 g/dL (14.0-18.0)
[2024-04-20 00:21] LABS: Hematocrit 49.9 % (42.0-52.0); Hemoglobin 17.2 g/dL (14.0-18.0)
[2024-04-20] MEDS: Melatonin 3 MG TAB PO SCH (02:25)
[2024-04-20 05:59] LABS: #Basophils 0.04 10x3/uL (0.0-0.2); %Basophils 0.4 % (0.0-1.0); %Eosinophils 4.8 % (0.0-10.0); %Lymphocytes 33.5 % (21.0-51.0); %Monocytes 7.6 % (0.0-10.0); %Neutrophils 53.4 % (42.0-75.0); Hematocrit 50.1 % (42.0-52.0); Hemoglobin 17.2 g/dL (14.0-18.0); Mean Corpuscular HGB CONC 34.3 g/dL (32.0-36.0); Mean Corpuscular Hemoglobin 34.5 pg (27.0-31.0); Mean Corpuscular Volume 100.6 fL (78.0-98.0); Mean Platelet Volume 9.7 fL (7.4-10.4); Platelet Count 262 10x3/uL (130-400); RBC Distribution Width 13.1 % (11.5-14.5); Red Blood Cell (RBC) Count 4.98 mill/uL (4.70-6.10)
[2024-04-20 06:19] LABS: Anion Gap 12 mmol/L (10-20); BUN (Urea Nitrogen) 18 mg/dL (8.4-25.7); Calc. Creatinine Clearance 95 mL/min (70-130); Calcium 9.1 mg/dL (7.8-10.44); Carbon Dioxide 20 mmol/L (23-31); Chloride 111 mmol/L (98-107); Estimated GFR 89; Glucose 115 mg/dL (83-110); Sodium 139 mmol/L (136-145)
[2024-04-20] MEDS: Ipratropium/Albuterol 3 ML NEB NEB PRN (06:31)
[2024-04-20] MEDS: Pantoprazole 40 MG VIAL IVP SCH (08:14)
[2024-04-20 11:03] LABS: Hematocrit 50.1 % (42.0-52.0); Hemoglobin 17.1 g/dL (14.0-18.0)
[2024-04-20] MEDS: GoLYTELY 4,000 ml Bottle PO SCH (18:06)
[2024-04-21] MEDS: Temazepam 15 MG CAP PO PRN (02:04)
[2024-04-21 04:49] LABS: #Basophils 0.03 10x3/uL (0.0-0.2); %Basophils 0.3 % (0.0-1.0); %Eosinophils 1.6 % (0.0-10.0); %Lymphocytes 20.2 % (21.0-51.0); %Monocytes 7.9 % (0.0-10.0); %Neutrophils 69.5 % (42.0-75.0); Hematocrit 44.6 % (42.0-52.0); Hemoglobin 15.5 g/dL (14.0-18.0); Mean Corpuscular HGB CONC 34.8 g/dL (32.0-36.0); Mean Corpuscular Volume 100.7 fL (78.0-98.0); Mean Platelet Volume 9.7 fL (7.4-10.4); Platelet Count 262 10x3/uL (130-400); RBC Distribution Width 13.1 % (11.5-14.5); Red Blood Cell (RBC) Count 4.43 mill/uL (4.70-6.10)
[2024-04-21 05:56] LABS: Anion Gap 17 mmol/L (10-20); BUN (Urea Nitrogen) 13 mg/dL (8.4-25.7); Calc. Creatinine Clearance 99 mL/min (70-130); Calcium 8.7 mg/dL (7.8-10.44); Carbon Dioxide 15 mmol/L (23-31); Chloride 109 mmol/L (98-107); Estimated GFR 90; Glucose 110 mg/dL (83-110); Potassium 4.8 mmol/L (3.5-5.1); Sodium 136 mmol/L (136-145)
[2024-04-21] MEDS: Amiodarone 200 MG TAB PO SCH (07:59)
[2024-04-21 08:52] VITALS: TEMP 97.8
[2024-04-21] MEDS ORDERED: Ipratropium/Albuterol 3 ML NEB ONE (09:20)
[2024-04-21] MEDS ORDERED: PROPOFOL 40 ML ONE (10:01)
[2024-04-21] MEDS ORDERED: ePHEDrine Sulfate 50 MG/10 ML VIAL ONE (10:12)
[2024-04-21] MEDS ORDERED: Lidocaine 2% PF 5 ML VIAL ONE (10:12)
[2024-04-21] MEDS ORDERED: PHENYLEPHRINE-NS 100 MCG/ML 10 ML SYRINGE ONE (10:15)
[2024-04-21] MEDS: Artificial Tear Ophth Sol 15 ML BOT EA EYE PRN (13:14)
[2024-04-21 18:08] VITALS: BP 134/90
== END 2024-04-21 16:36 | disposition home or self-care (01) | DRG 379 ==
LOC: ERS 15:18 → T4-B 17:42 → OBSVTOIN 04-20 15:02
PROVIDERS: ADMIT Internal Medicine; ATTEND Internal Medicine
PROC: 0DBK8ZZ Excision of Ascending Colon, Via Natural or Artificial Opening Endoscopic (ICD-10-PCS; principal; 2024-04-21)
PROC: 0DBN8ZZ Excision of Sigmoid Colon, Via Natural or Artificial Opening Endoscopic (ICD-10-PCS; 2024-04-21)
PROC: 0DBH8ZZ Excision of Cecum, Via Natural or Artificial Opening Endoscopic (ICD-10-PCS; 2024-04-21)
DX: K57.31 Diverticulosis of large intestine without perforation or abscess with bleeding (principal); K44.9 Diaphragmatic hernia without obstruction or gangrene; I48.0 Paroxysmal atrial fibrillation; Z79.899 Other long term (current) drug therapy; Z79.01 Long term (current) use of anticoagulants; Z90.49 Acquired absence of other specified parts of digestive tract; Z98.890 Other specified postprocedural states; D64.9 Anemia, unspecified; N40.1 Benign prostatic hyperplasia with lower urinary tract symptoms; R39.14 Feeling of incomplete bladder emptying; D12.0 Benign neoplasm of cecum; D12.2 Benign neoplasm of ascending colon; D12.5 Benign neoplasm of sigmoid colon
CPT/HCPCS: 36415; 71045; 80048; 80053; 84484; 85025; 85610; 85730; 86850; 86900; 86901; 88305; 93005; 94640; 96374; 96376; G0378; J2001; J2470; J2704; J7620

== ENCOUNTER 2025-02-21 07:55 | Outpatient (CLI) | payer MEDICARE ==
[2025-02-21 09:03] LABS: #Basophils 0.04 10x3/uL (0.0-0.2); #Eosinophils 0.33 10x3/uL (0.0-0.7); #Monocytes 0.70 10x3/uL (0.11-0.59); #Neutrophils 4.58 10x3/uL (1.40-6.50); %Basophils 0.5 % (0.0-1.0); %Eosinophils 3.9 % (0.0-10.0); %Lymphocytes 33.0 % (21.0-51.0); %Monocytes 8.3 % (0.0-10.0); %Neutrophils 54.1 % (42.0-75.0); Hematocrit 52.7 % (42.0-52.0); Hemoglobin 18.0 g/dL (14.0-18.0); Mean Corpuscular Hemoglobin 33.9 pg (27.0-31.0); Mean Corpuscular Volume 99.2 fL (78.0-98.0); Platelet Count 257 10x3/uL (130-400); Red Blood Cell (RBC) Count 5.31 mill/uL (4.70-6.10); White Blood Cell (WBC) Count 8.46 10x3/uL (4.8-10.8)
[2025-02-21 09:21] LABS: Anion Gap 12 mmol/L (10-20); BUN (Urea Nitrogen) 14 mg/dL (8.4-25.7); Calc. Creatinine Clearance 0 mL/min (70-130); Calcium 9.8 mg/dL (7.8-10.44); Carbon Dioxide 21 mmol/L (23-31); Chloride 107 mmol/L (98-107); Glucose 124 mg/dL (83-110); Potassium 4.4 mmol/L (3.5-5.1); Sodium 136 mmol/L (136-145)
[2025-02-21 09:23] LABS: INR-International Normal Ratio 1.0; PTT 31.5 sec (22.9-36.1); Prothrombin Time 13.7 sec (12.0-14.7)
== END 2025-02-21 07:56 | disposition home or self-care (01) ==
LOC: LABBT 07:55
PROVIDERS: ATTEND Internal Medicine Cardiovascular Disease
DX: Z01.812 Encounter for preprocedural laboratory examination (principal); I48.0 Paroxysmal atrial fibrillation; K92.2 Gastrointestinal hemorrhage, unspecified
CPT/HCPCS: 80048; 85025; 85610; 85730

== ENCOUNTER 2025-04-03 08:11 | Outpatient (CLI) | payer MEDICARE ==
[2025-04-03 08:54] LABS: Estimated GFR - POC 84.0
[2025-04-03] MEDS ORDERED: Iopamidol 370 76% 100 ML VIAL ONE (09:55)
== END 2025-04-03 08:12 | disposition home or self-care (01) ==
LOC: CT 08:11
PROVIDERS: ATTEND Urology
DX: N28.89 Other specified disorders of kidney and ureter (principal)
CPT/HCPCS: 36415; 74170; 82565; Q9967